=== PATIENT | male | born 1980 | race Caucasian/White ===

== ENCOUNTER 2019-04-22 08:26 | Emergency (ER) | payer SELFPAY ==
[~2019-04-22] VITALS: Ht 175.3 cm; Wt 68.0 kg
[2019-04-22] MEDS ORDERED: NEOMY/BACITR/POLYMYXIN OINT PACKET. TP ONE (09:00)
[2019-04-22] MEDS ORDERED: CLINDAMYCIN HCL 150 MG CAPSULE. PO ONE (09:00)
[2019-04-22 09:08] VITALS: BP 152/85
[2019-04-22] MEDS ORDERED: MUPI22OI2 TP (09:09)
[2019-04-22] MEDS ORDERED: CLIN300C8 PO (09:09)
--- NOTE | 2019-04-22 09:09 | PHYS DOC ---
Past Medical History Past Medical History: No Pertinent History Past Surgical History: No Surgical History Smoking: Less than 1pk/day Alcohol Use: Rarely Drug Use: Marijuana Adult General Chief Complaint Chief Complaint: INSECT BITE HPI HPI A 38-year-old male presents with left hand swelling, pain, erythema, and oozing pus. 2 days ago he had an insect bite and popped it. Today he woke up with a very dizzy taking anything in his hand is swollen and the reading of pus we will see him on the dorsum of his hand. He reports finger swelling. He denies fever, shortness of breath, chest pain, but reports abdominal pain. He recently lifted something yesterday and experienced sharp pain in his right testicle. He reports having pain similar to this for the last 2 months but recently worsened after lifting a boat trailer. He reports the pain in his hand as a 4-10, throbbing, and tender to palpation. Review of Systems Review of Systems Constitutional: Denies fever or chills Eyes: Denies redness or eye pain HENT: Denies nasal congestion or sore throat Respiratory: Denies cough or shortness of breath Cardiovascular: Denies chest pain or palpitations GI: Denies abdominal pain, nausea, or vomiting : Denies dysuria or hematuria but reports right testicular pain Musculoskeletal: Denies back pain or joint pain Integument: Denies rash, reports a recent reports abdominal pain but denies lesion on the dorsal side of his left hand Neurologic: Reports headache but denies focal weakness weakness or sensory changes Complete systems were reviewed and found to be within normal limits, except as documented in this note. Current Medications Current Medications Current Medications Medications (Trade) Dose Ordered Sig/[place] Start Time Stop Time Status Last Admin Dose Admin Clindamycin HCl (Cleocin) 450 mg 1X ONCE 04/22/19 09:00 04/22/19 09:01 DC Neomycin/ Polymyxin/ Bacitracin (Triple Antibiotic Ointment) 1 pkt 1X ONCE 04/22/19 09:00 04/22/19 09:01 DC Allergies Allergies Allergies Coded Allergies Type Severity Reaction Last Updated Verified Penicillins Allergy Intermediate Unknown 04/22/19 Yes Physical Exam Physical Exam Constitutional: Well developed, well nourished, no acute distress, non-toxic appearance HENT: Normocephalic, atraumatic, oropharynx moist Eyes: PERRL, EOMI, conjunctiva normal, no discharge Neck: Normal range of motion, no tenderness, supple Cardiovascular: Heart rate normal, regular rhythm Lungs & Thorax: Bilateral breath sounds clear to auscultation, no wheezing Abdomen: Soft, no tenderness Skin: Warm, dry, his left hand is a year and erythematous, swollen, with a 3 cm circular lesion on his left hand. It is draining pus and tender to palpation. Back: No tenderness, no CVA tenderness Extremities: No tenderness, ROM intact, no edema Neurologic: Alert and oriented X 3, normal motor function, normal sensory function, no focal deficits noted Psychologic: Affect normal, judgement normal, mood normal : Right inguinal hernia that is reducible. Right testicle is tender to palpation. External genitalia appear normal with no signs of swelling erythema. EKG EKG [] Radiology/Procedures Radiology/Procedures [] Course & Med Decision Making Course & Med Decision Making Patient presents with left hand swelling, erythema, and a open draining lesion. Patient was prescribed oral antibiotics and topical antibiotics and instructed to keep the area dry. Lesion was cleaned, dressed, and topical antibiotics were applied. Patient was instructed to return to the emergency department if symptoms worsen or streaking up the forearm occurs, Patient had a right inguinal hernia that was reduced in the emergency department. Patient was instructed to avoid heavy lifting, to reduce hernia as needed, and if it becomes unreducible to return to the ER. Patient was given a family doctor and general surgeon to follow-up with. Patient was discharged in stable condition. Dragon Disclaimer Dragon Disclaimer This electronic medical record was generated, in whole or in part, using a voice recognition dictation system. Departure Departure Impression: Primary Impression: Cellulitis and abscess of hand Additional Impression: Right inguinal hernia Disposition: 01 HOME, SELF-CARE Condition: STABLE Referrals: NO PCP (PCP) COURT ZARCO MD Patient Instructions: Abscess, [id number], Cellulitis, [id number], Inguinal Hernia, Adult, Care After Additional Instructions: Use over the counter Tylenol and Ibuprofen for pain or discomfort. Scripts Mupirocin (MUPIROCIN OINTMENT) 22 Gm Oint...g. 1 WILFREDO TP TID for WOUND CARE for 7 Days, #1 TUBE Prov: VIGNESH JANG DO 04/22/19 Clindamycin Hcl (CLINDAMYCIN HCL) 300 Mg Capsule 1 CAP PO TID for Infection, #21 CAP Prov: VIGNESH JANG DO 04/22/19 Problem Qualifiers VIGNESH JANG DO Apr 22, 2019 09:09
== END 2019-04-22 09:24 | disposition home or self-care (01) ==
LOC: ER 08:26
DX: S60.562A Insect bite (nonvenomous) of left hand, initial encounter (principal); L02.512 Cutaneous abscess of left hand; L53.9 Erythematous condition, unspecified; R51 Headache; K40.90 Unilateral inguinal hernia, without obstruction or gangrene, not specified as recurrent; F12.90 Cannabis use, unspecified, uncomplicated; F17.200 Nicotine dependence, unspecified, uncomplicated; Z88.0 Allergy status to penicillin; W57.XXXA Bitten or stung by nonvenomous insect and other nonvenomous arthropods, initial encounter; Y93.89 Activity, other specified; Y92.89 Other specified places as the place of occurrence of the external cause; Y99.8 Other external cause status
CPT/HCPCS: 99283